=== PATIENT | male | born 1995 | race Caucasian/White ===

== ENCOUNTER 2020-11-20 15:55 | Emergency (ER) | payer OTHER ==
[~2020-11-20] VITALS: Ht 167.6 cm; Wt 70.5 kg
[2020-11-20 16:54] LABS: BASO # 0.1 10^3/uL (0.0-0.2); BASO % 0.9 % (0.0-1.0); EOS # 0.3 10^3/uL (0.0-0.5); EOS % 3.9 % (0.0-3.0); HEMATOCRIT 50.7 % (42.0-52.0); HEMOGLOBIN 17.4 g/dl (13.5-17.5); LYMPH % 29.6 % (24.0-44.0); MEAN CORPUSCULAR HEMOGLOBIN 29.1 pg (27.0-33.0); MEAN CORPUSCULAR HGB CONC 34.3 g/dl (32.0-36.5); MEAN CORPUSCULAR VOLUME 84.8 fl (80.0-96.0); MONO # 0.6 10^3/uL (0.0-0.8); MONO % 9.3 % (2.0-8.0); NEUTROPHILS # 3.8 10^3/uL (1.5-8.5); NEUTROPHILS % 55.9 % (36.0-66.0); PLATELET COUNT, AUTOMATED 249 10^3/uL (150-450); RED BLOOD COUNT 5.98 10^6/uL (4.30-6.10); WHITE BLOOD COUNT 6.7 10^3/uL (4.0-10.0)
--- NOTE | 2020-11-20 16:59 | REP ---
INDICATION: CHEST PAIN COMPARISON: None. TECHNIQUE: Portable AP view of the chest FINDINGS: The mediastinum and cardiac silhouette are within normal limits for portable technique. The lung garces are clear without acute consolidation, effusion, or pneumothorax. Skeletal structures are intact. IMPRESSION: No acute cardiopulmonary process appreciated. <Electronically signed by Gareth Benítez > 11/20/20 [id number]
[2020-11-20] MEDS ORDERED: LR 1,000 ML IV ONE ×2 (17:15→19:20)
[2020-11-20 17:20] LABS: C REACTIVE PROTEIN QUANTITATIV < 0.30 MG/DL (0.00-0.30)
[2020-11-20 17:30] LABS: ERYTHROCYTE SEDIMENTATION RATE 1 mm/hr (0-15)
[2020-11-20 17:45] LABS: ACETAMINOPHEN LEVEL < 2.0 UG/ML (10.0-30.0); ETHYL ALCOHOL (ETHANOL) < 0.003 % (0.000-0.010)
[2020-11-20] MEDS ORDERED: ISOVUE-370 76% 100ML VIAL As Ordered ONE (17:49)
[2020-11-20 17:58] LABS: AMPHETAMINES LEVEL URINE NEGATIVE (NEGATIVE); BARBITURATES URINE NEGATIVE (NEGATIVE); BENZODIAZEPINES URINE NEGATIVE (NEGATIVE); CANNABINOIDS URINE NEGATIVE (NEGATIVE); COCAINE METABOLITE URINE NEGATIVE (NEGATIVE); METHADONE URINE NEGATIVE (NEGATIVE); OPIATES URINE NEGATIVE (NEGATIVE); PHENCYCLIDINE URINE NEGATIVE (NEGATIVE)
--- NOTE | 2020-11-20 18:42 | REPVR ---
PROCEDURE INFORMATION: Exam: CTA Chest With Contrast Exam date and time: 11/20/2020 5:51 PM Age: 25 years old Clinical indication: Shortness of breath; Additional info: SOB, chest pressure, tachycardia TECHNIQUE: Imaging protocol: Computed tomographic angiography of the chest with contrast. 3D rendering (Not supervised by radiologist): MIP and/or 3D reconstructed images were created by the technologist. Radiation optimization: All CT scans at this facility use at least one of these dose optimization techniques: automated exposure control; mA and/or kV adjustment per patient size (includes targeted exams where dose is matched to clinical indication); or iterative reconstruction. Contrast material: ISOVUE 370; Contrast volume: 75 ml; Contrast route: INTRAVENOUS (IV); COMPARISON: [facility] PORTABLE CHEST X-RAY 11/20/2020 4:36 PM FINDINGS: Pulmonary arteries: Normal. No pulmonary emboli. Aorta: Unremarkable. No aortic aneurysm. No aortic dissection. Lungs: Unremarkable. No consolidation. No masses. Pleural spaces: Unremarkable. No pneumothorax. No pleural effusion. Heart: Unremarkable. No cardiomegaly. No pericardial effusion. Lymph nodes: Unremarkable. No enlarged lymph nodes. Bones/joints: Scoliosis of the thoracic spine. Soft tissues: Unremarkable. IMPRESSION: No pulmonary embolism. Electronically signed by: Raul Kerr On 11/20/2020 18:41:21 PM
--- NOTE | 2020-11-20 19:26 | ECGEPIP ---
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
[2020-11-20 21:15] VITALS: BP 155/91
--- NOTE | 2020-11-21 05:59 | ECGEPIP ---
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
== END 2020-11-20 21:20 | disposition home or self-care (01) ==
LOC: M ED 15:55 → EDBD 15:55 → M ED 21:20
DX: E86.0 Dehydration (principal); R07.89 Other chest pain; R00.0 Tachycardia, unspecified; F17.200 Nicotine dependence, unspecified, uncomplicated
CPT/HCPCS: 71045; 71275; 80047; 80143; 80307; 82077; 83605; 84484; 85025; 85652; 86140; 93005; 93041; 94760; 96365; 96366; 99285; Q9967

== ENCOUNTER 2022-06-02 21:44 | Emergency (ER) | payer OTHER ==
[~2022-06-02] VITALS: Ht 167.6 cm; Wt 68.2 kg
[2022-06-03 02:01] VITALS: BP 146/89
== END 2022-06-03 02:30 | disposition left against medical advice (07) ==
LOC: M ED 21:44
DX: Z53.21 Procedure and treatment not carried out due to patient leaving prior to being seen by health care provider (principal)

== ENCOUNTER 2022-06-08 07:57 | Emergency (ER) | payer OTHER ==
[~2022-06-08] VITALS: Ht 167.6 cm; Wt 68.2 kg
[2022-06-08 09:06] LABS: RSV AMPLIFICATION NEGATIVE (NEGATIVE)
[2022-06-08] MEDS ORDERED: NS 1,000 ML IV ONE (09:35)
[2022-06-08] MEDS ORDERED: ONDANSETRON 4MG 2ML VIAL IV ONE (09:35)
[2022-06-08 10:35] LABS: VENOUS BASE EXCESS -0.9 (-2.0-2.0); VENOUS HCO3 23.7 MEQ/L (23.0-27.0); VENOUS O2 SATURATION 97.1 % (60.0-80.0); VENOUS PARTIAL PRESSURE CO2 39.1 mmHg (38.0-50.0); VENOUS PARTIAL PRESSURE O2 91.1 mmHg (30.0-50.0); VENOUS STANDARD HCO3 23.8 MEQ/L; VENOUS TOTAL CO2 24.9 MEQ/L (24.0-28.0)
[2022-06-08 10:48] LABS: BASO # 0.1 10^3/uL (0.0-0.2); EOS # 0.5 10^3/uL (0.0-0.5); EOS % 7.8 % (0.0-3.0); HEMATOCRIT 48.1 % (42.0-52.0); LYMPH # 2.1 10^3/uL (1.5-5.0); LYMPH % 33.4 % (24.0-44.0); MEAN CORPUSCULAR HEMOGLOBIN 28.7 pg (27.0-33.0); MEAN CORPUSCULAR HGB CONC 33.3 g/dl (32.0-36.5); MEAN CORPUSCULAR VOLUME 86.4 fl (80.0-96.0); MONO # 0.5 10^3/uL (0.0-0.8); MONO % 8.6 % (2.0-8.0); NEUTROPHILS # 3.1 10^3/uL (1.5-8.5); NEUTROPHILS % 48.7 % (36.0-66.0); PLATELET COUNT, AUTOMATED 238 10^3/uL (150-450); RED BLOOD COUNT 5.57 10^6/uL (4.30-6.10); WHITE BLOOD COUNT 6.3 10^3/uL (4.0-10.0)
[2022-06-08 11:00] LABS: CK-MB VALUE MASS < 1.0 NG/ML (<3.6)
[2022-06-08 11:01] LABS: CPK CREATINE PHOSPHOKINASE 88 U/L (46-171); MB/CK RELATIVE INDEX 1.13 (< OR =4)
[2022-06-08 11:03] LABS: THYROID STIMULATING HORMONE 1.365 uIU/ML (0.55-4.78)
[2022-06-08 11:04] LABS: FREE THYROXINE INDEX 3.7 % (1.4-3.8); THYROXINE (T4) 9.1 UG/DL (4.5-10.9)
[2022-06-08] MEDS ORDERED: ISOVUE-370 76% 100ML VIAL As Ordered ONE (11:43)
[2022-06-08] MEDS ORDERED: LORazepam 2 MG/ML VIAL IV STA (11:46)
[2022-06-08 11:47] VITALS: BP 137/81
[2022-06-08] MEDS ORDERED: ONDA4TAB6 PO (12:48)
== END 2022-06-08 13:14 | disposition home or self-care (01) ==
LOC: M ED 07:57
DX: R00.2 Palpitations (principal); R06.02 Shortness of breath; R19.7 Diarrhea, unspecified; F17.200 Nicotine dependence, unspecified, uncomplicated; Z79.899 Other long term (current) drug therapy
CPT/HCPCS: 71046; 71275; 80047; 82550; 82553; 82803; 83880; 84436; 84443; 84479; 84484; 85025; 85379; 87631; 96361; 96374; 96375; 99284; J2060; J2405

== ENCOUNTER 2022-06-09 16:55 | Emergency (ER) | payer OTHER ==
[~2022-06-09] VITALS: Ht 167.6 cm; Wt 68.2 kg
[~2022-06-09 16:55] MED LIST: ONDA4TAB6 PO
[2022-06-09 16:56] VITALS: BP 159/89
== END 2022-06-09 22:35 | disposition left against medical advice (07) ==
LOC: M ED 16:55
DX: Z53.21 Procedure and treatment not carried out due to patient leaving prior to being seen by health care provider (principal)